=== PATIENT | male | born 2000 | race Two or more races ===

== ENCOUNTER 2024-03-24 20:34 | Emergency (ER) | payer SELFPAY ==
[2024-03-24 20:39] VITALS: BP 148/88; PULSE 115; RESP 17; TEMP 37.2; O2SAT 100
[2024-03-24 20:40] VITALS: BMI 25.0
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
== END 2024-03-24 20:52 ==
PROVIDERS: Emergency Provider Emergency Medicine
DX: Z02.89 Encounter for other administrative examinations (principal); Z04.1 Encounter for examination and observation following transport accident
CPT/HCPCS: 99281